=== PATIENT | female | born 2005 | race Caucasian/White ===

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

== ENCOUNTER 2024-03-02 05:09 | Emergency (ER) | payer MEDICAID ==
[~2024-03-02] VITALS: Ht 160 cm; Wt 56.8 kg
[~2024-03-02 05:09] MED LIST changes: -LACT10SO57 PO; +LACT10SO88 PO
[2024-03-02 05:15] VITALS: TEMP 97.9
[2024-03-02 05:45] LABS: URINE HCG NEGATIVE (NEG)
[2024-03-02 05:57] LABS: BILIRUBIN,URINE NEGATIVE (Neg); CLARITY,URINE SLIGHTLY CLOUDY (Clear); COLOR,URINE YELLOW (Yellow); GLUCOSE, URINE NEGATIVE (Neg); KETONES,URINE NEGATIVE (Neg); LEUKOCYTE ESTERASE ,URINE NEGATIVE (Neg); NITRITES, URINE NEGATIVE (Neg); OCCULT BLOOD,URINE NEGATIVE (Neg); PROTEIN,URINE NEGATIVE (Neg); UROBILINOGEN,URINE 0.2 E.U/dL (0.2-1.0)
[2024-03-02 06:04] LABS: UA COLLECTION TYPE CLN CATCH MIDSTREAM
[2024-03-02 06:20] LABS: BACTERIA,URINE FEW /HPF (Neg); MUCUS STRANDS MODERATE /LPF (Neg); RBC,URINE 0-2 /HPF (0-2); SQUAMOUS EPITHELIAL CELL,UR MODERATE /LPF (FEW); WBC,URINE 0-4 /HPF (0-4)
[2024-03-02 08:16] LABS: BASOPHILS % (AUTO) 0.2 % (0-1); EOSINOPHILS % (AUTO) 0.4 % (0-6); HEMATOCRIT 42.1 % (35.0-45.0); HEMOGLOBIN 14.1 g/dl (12.0-16.0); LYMPHOCYTES % (AUTO) 28.9 % (21-51); MEAN CORPUSCULAR HEMOGLOBIN 30.6 PG (27.0-31.0); MEAN CORPUSCULAR HGB CONC 33.6 g/dL (33.0-36.5); MEAN CORPUSCULAR VOLUME 91.3 FL (78-98); MEAN PLATELET VOLUME 9.8 FL (7.4-10.4); MONOCYTES # (AUTO) 0.4 X10'3 (0-0.9); NEUTROPHILS # (AUTO) 4.5 X10'3 (1.8-7.7); NEUTROPHILS % (AUTO) 64.5 % (42-75); PLATELET COUNT 166 X10'3 (140-440); RED BLOOD COUNT 4.61 X10'6 (4.20-5.60); RED CELL DISTRIBUTION WIDTH 13.1 % (11.5-14.5); WHITE BLOOD COUNT 6.9 X10'3 (4.5-11.0)
[2024-03-02 08:32] LABS: ALANINE AMINOTRANSFERASE 32 U/L (12-78); ALBUMIN 3.9 G/DL (3.4-5.0); ALKALINE PHOSPHATASE 117 IU/L (20-180); ANION GAP 10 (8-16); ASPARTATE AMINO TRANSFERASE 20 U/L (10-37); BILIRUBIN,TOTAL 0.7 MG/DL (0.1-1.0); BLOOD UREA NITROGEN 13 MG/DL (7-18); BUN/CREATININE RATIO 17.8 (10.0-20.0); CALCIUM 8.7 MG/DL (8.5-10.1); CHLORIDE 104 MMOL/L (99-107); CREATININE 0.73 MG/DL (0.40-0.90); GLUCOSE 95 MG/DL (70-104); LIPASE 29 U/L (16-77); POTASSIUM 3.8 MMOL/L (3.5-5.1); SODIUM 139 MMOL/L (135-145); TOTAL CARBON DIOXIDE 25.2 MMOL/L (24-32); TOTAL PROTEIN 7.8 G/DL (6.4-8.2); eCRCL 103 ML/MIN; eGFR > 90 ML/MIN
[2024-03-02] MEDS ORDERED: FAMO-129 PO (08:41)
[2024-03-02 08:45] VITALS: BP 96/69; PULSE 83; RESP 18; O2SAT 98
[2024-03-02] MEDS: pantoprazole 40mg Tablet.DR PO ONE (08:45)
== END 2024-03-02 09:13 | disposition home or self-care (01) ==
LOC: ER 05:10
DX: K29.00 Acute gastritis without bleeding (principal); Z79.899 Other long term (current) drug therapy
CPT/HCPCS: 36415; 80053; 81001; 81025; 83690; 85025; 99283

== ENCOUNTER 2025-07-05 11:48 | Emergency (ER) | payer MEDICAID ==
[~2025-07-05] VITALS: Ht 157.5 cm; Wt 54.0 kg
[~2025-07-05 11:48] MED LIST changes: +FAMO-129 PO; +LACT-383 PO; -LACT10SO88 PO
[2025-07-05 12:17] LABS: MEAN PLATELET VOLUME 9.4 FL (7.4-10.4); RED CELL DISTRIBUTION WIDTH 12.6 % (11.5-14.5)
[2025-07-05 12:33] LABS: CREATININE 0.72 MG/DL (0.40-0.90); TOTAL CARBON DIOXIDE 29.1 MMOL/L (24-32); eCRCL 99 ML/MIN; eGFR > 90 ML/MIN
[2025-07-05 13:00] LABS: LEUKOCYTE ESTERASE ,URINE NEGATIVE (Neg); NITRITES, URINE NEGATIVE (Neg); OCCULT BLOOD,URINE NEGATIVE (Neg)
[2025-07-05 13:01] LABS: UA COLLECTION TYPE CLN CATCH MIDSTREAM; URINE HCG NEGATIVE (NEG)
[2025-07-05] MEDS: mag hydrox/Alum hydrox/simeth 30ml oral suspension PO ONE (14:56)
--- NOTE | 2025-07-05 14:56 | Physician Documentation ---
History of Present Illness Chief Complaint: Abdominal Pain Stated Complaint: ABD PAIN Time Seen by MD: 14:04 Primary Medical Doctor: [facility] Source: patient Mode of Arrival: POV, Ambulatory Exam Limitations: no limitations HPI Presents with abdominal pain. Her pain onset was one week ago. She saw a doctor at her school who gave her Tums. She states this has not helped. Pain is located in the epigastric region. It is worse after eating. Feels like a fullness or and burning with occasional nausea. No vomiting. No diarrhea. No blood in her stool or vomit. Pain is worse after eating all foods. Has been avoiding spicy foods, chocolate, caffeine. She states she has had similar pain every year. No past medical history. No surgeries. Does not smoke or drink alcohol. No fevers or chills. Was asked, but otherwise denies review of systems. Medication Reconciliation Allergies: Coded Allergies: No Known Allergies (Unverified , 07/05/25) Scheduled Famotidine (Pepcid), 1 TAB PO Q12H Lactulose (Lactulose), 15 ML PO DAILY Omeprazole (Omeprazole), 1 CAP PO DAILY Past Medical History Past Medical History: No Pertinent History Past Surgical History: no surgical history Smoking Status: Never smoker Alcohol Use: None Drug Use: none Lives with: Mother Lives In: Home Occupation: student Review of Systems ROS Review of systems negative except documented in HPI. Physical Exam Vital Signs: RN Vital Signs have been reviewed: Yes, Temperature: 96.9, Source: Temporal, Heart Rate: 80, Respiratory Rate: 18, BP: 104/71, Pulse Oximetry: 98, Weight: 54.000 Oxygen Flow Rate: 0 Pulse Oximetry Reflects: adequate oxygenation Physical Exam General: Awake, alert, oriented. No apparent distress Respiratory: Lungs are clear to auscultation bilaterally. No respiratory distress. Chest: Normal shape and size. No accessory muscle use. Cardiovascular: Regular rate and rhythm. S1-S2. No murmur, gallop, rub. Gastrointestinal: Abdomen is soft. Tenderness to the right upper quadrant and epigastric area on palpation. There is no organomegaly. Bowel sounds are positive. Extremities: No lower extremity edema, cyanosis or clubbing. Neurologic: Alert and oriented x4. Nonfocal Psychiatric: Normal mood and affect. Skin: Normal color. Warm and dry. Progress Results/Orders Results/Orders Orders - ANGELINA PARKS NP Ultrasound Of Abdomen (07/05/25 14:13) Completed Orders - ANGELINA PARKS [employer] Mag & Alum Hydrox/Simeth Susp (Maalox Or (07/05/25 14:15) Ultrasound Of Abdomen (07/05/25 14:13) Vital Signs 07/05/25 07/05/25 07/05/25 11:51 14:36 14:38 Temp 96.9 Pulse 80 80 Resp 18 18 B/P (MAP) 107/71 104/71 (82) Pulse Ox 99 98 O2 Flow Rate 0 0 Laboratory Tests Test 07/05/25 11:53 07/05/25 12:04 Urine Specimen Description Cln catch midstream Urine Color Yellow Urine Clarity Clear Urine pH 6.5 Urine Specific [place] <=1.005 Urine Protein Negative Urine Glucose (UA) Negative Urine Ketones Negative Urine Occult Blood Negative Urine Nitrite Negative Urine Bilirubin Negative Urine Urobilinogen 0.2 Urine Leukocyte Esterase Negative Urine Culture Indicated Not ind Volume Urine Centrifuged 10 ml Urine HCG, Qualitative Negative Urine Comment White Blood Count 6.9 Red Blood Count 4.71 Hemoglobin 14.3 Hematocrit 41.7 Mean Corpuscular Volume 88.6 Mean Corpuscular Hemoglobin 30.4 Mean Corpuscular Hemoglobin Concent 34.3 Red Cell Distribution Width 12.6 Platelet Count 191 Mean Platelet Volume 9.4 Neutrophils (%) (Auto) 69.5 Lymphocytes (%) (Auto) 24.5 Monocytes (%) (Auto) 5.1 Eosinophils (%) (Auto) 0.6 Basophils (%) (Auto) 0.3 Neutrophils # (Auto) 4.8 Lymphocytes # (Auto) 1.7 Monocytes # (Auto) 0.4 Eosinophils # (Auto) 0.0 Basophils # (Auto) 0.0 CBC Comment Sodium Level 139 Potassium Level 3.9 Chloride Level 102 Carbon Dioxide Level 29.1 Anion Gap 8 Blood Urea Nitrogen 8 Creatinine 0.72 Estimated GFR/1.73 m2 > 90 BUN/Creatinine Ratio 11.1 Glucose Level 100 Calcium Level 8.4 L Total Bilirubin 1.3 H Aspartate Amino Transf (AST/SGOT) 12 Alanine Aminotransferase (ALT/SGPT) 20 Alkaline Phosphatase 96 Total Protein 8.1 Albumin 4.1 Globulin 4.0 Albumin/Globulin Ratio 1.0 L Lipase 43 Chemistry Comments EKG/XRAY/CT/US/VASC/MRI Ultrasound : Interpreted By: radiologist Ultrasound of: abdomen Impression [facility] [address] , [place], [place] - [address] ULTRASOUND Patient: KATELYN BEVERLY Medical Record: [id number] [facility] : 2005, Age: 19 Sex: Female Location: ER Patient Status: [facility] ER Service Date/Time: 07/05/251412 Ordering Physician: ANGELINA PARKS NP Exam: ULTRASOUND OF ABDOMEN Technique: Real-time ultrasound imaging of the abdomen was performed with villalobos scale and color Doppler. Indication: RUQ abd pain. Comparison: None Findings: Liver measures 12 cm. It is unremarkable in echogenicity and echotexture without focal mass. Portal vein is normal in caliber and demonstrates normal hepatopetal flow. Gallbladder demonstrates sludge. There is no pericholecystic fluid. The wall thickness is normal. The common bile duct measures 2 mm. No intrahepatic biliary ductal dilatation. The right kidney measures 11 cm. There is no hydronephrosis or sonographic evid ence of nephrolithiasis. The visualized portion of the pancreas is unremarkable. The visualized portion of the IVC is unremarkable. Impression: Gallbladder sludge Electronically Signed by:KEDAR JORDAN MD Date & Time: 07/05/251457 Dictated by: KEDAR JORDAN MD Dictation date and time: 07/05/251457 Primary Care Provider: NO PRIMARY CARE PROVIDER cc: ANGELINA PARKS NP ~ Medical Decision Making Additional information obtaine: N/A Findings Patient presents with a abdominal pain. Consistent with GERD. Tums have not been effective. Is not taking a PPI. Given her elevated bilirubin and right upper quadrant abdominal pain with palpation a ultrasound was performed that biliary sludge. No evidence of cholecystitis cholelithiasis. She had questione d whether she had H pylori. Was encouraged to follow up with her primary care provider. She does have follow up with [facility] in [facility]. , there is no evidence of acute intra-abdominal emergency. This was reviewed with her. Follow up encouraged. Warning signs and symptoms reviewed. Prescription for PPI and instructions for outpatient follow up. Differential Dx:Considerations: Angina/[place], Bowel obstruction, Cholangitis, Cholelithasis, Constipation, Esophageal rupture, Gastritis/PUD, Gastroenteritis, Hernia, Inflammatory BD Departure Time of Disposition: 15:35 Disposition: 01 HOME / SELF CARE / HOMELESS Impression: Primary Impression: Acute gastritis Qualified Codes: K29.00 - Acute gastritis without bleeding Additional Impression: Biliary sludge determined by ultrasound Discharge Instructions: Gastritis, Adult Additional Instructions: Your ultrasound showed sludge in her gallbladder which is not in itself concerning. Her symptoms are due to GERD or inflammation of your stomach lining. I have given you a prescription for omeprazole which she will take before 1st meal of the day. Recommend that you follow up with your primary care provider. You may have H pylori as we discussed given that you have had symptoms for years. This is tested with a urea breath test. Recommend that you follow up with your primary care provider for further testing. Please return for any new or worsening symptoms. Referrals: NO PRIMARY CARE PROVIDER (PCP) Prescriptions Omeprazole (Omeprazole) 20 Mg Capsule.dr 1 CAP PO DAILY for 30 Days, #30 CAP 0 Refills Prov: ANGELINA PARKS NP 07/05/25 Education Educated: Patient Educated regarding: diagnosis, treatment, need for follow up Signature Scribe Signature: No scribe Attestation: The note accurately reflects work and decisions made by me.Angelina Parks - [place] 07/05/25 17:23 This note was created with the assistance of voice recognition software whereby errors in grammar, syntax, and/or spelling may have occurred despite active proofreading efforts by the author. Please do not hesitate to contact the provider for clarification or for questions regarding the content of this document. ANGELINA PARKS NP Jul 05, 2025 14:55
[2025-07-05] MEDS ORDERED: OMEP20CA16 PO (15:28)
[2025-07-05 15:54] VITALS: BP 108/70; PULSE 93; RESP 18; TEMP 96.9; O2SAT 96
== END 2025-07-05 15:52 | disposition home or self-care (01) ==
LOC: ER 11:48
DX: K29.00 Acute gastritis without bleeding (principal); Z79.899 Other long term (current) drug therapy
CPT/HCPCS: 36415; 76700; 80053; 81003; 81025; 83690; 85025; 99284